=== PATIENT | female | born 1945 | race Two or more races ===

== ENCOUNTER 2019-09-24 14:57 | Inpatient (IN) | payer OTHER ==
[~2019-09-24] VITALS: Ht 167.6 cm; Wt 80.7 kg
[2019-09-24] MEDS ORDERED: ADVIL (16:17)
[2019-09-24] MEDS ORDERED: SYNTHROID112 MCG (16:18)
[2019-09-24] MEDS ORDERED: LOSARTAN (16:20)
[2019-09-24] MEDS ORDERED: RESTORIL30 M1 (16:21)
[2019-09-26] MEDS ORDERED: LOSARTAN POTAS100 MG PO (16:46)
[2019-09-26] MEDS ORDERED: ADVIL200 MG (16:47)
[2019-09-26] MEDS ORDERED: NORVASC2.5 MG PO (16:47)
[2019-09-29] MEDS ORDERED: PERCOCET 5-3251 EACH PO (08:00)
[2019-09-29] MEDS ORDERED: ELIQUIS2.5 MG PO (08:00)
== END 2019-09-29 13:11 | DRG 482 ==
LOC: ER 14:57 → SURG 19:56 → SURH 09-25 19:21
PROVIDERS: Orthopaedic Surgery; ADMIT Internal Medicine; ATTEND Internal Medicine
PROC: 4A033R1 Measurement of Arterial Saturation, Peripheral, Percutaneous Approach (ICD-10-PCS; 2019-09-24)
PROC: 0QS636Z Reposition Right Upper Femur with Intramedullary Internal Fixation Device, Percutaneous Approach (ICD-10-PCS; principal; 2019-09-25 09:00)
DX: S72.141A Displaced intertrochanteric fracture of right femur, initial encounter for closed fracture (principal); J44.9 Chronic obstructive pulmonary disease, unspecified; E03.9 Hypothyroidism, unspecified; W18.30XA Fall on same level, unspecified, initial encounter; I10 Essential (primary) hypertension; E66.9 Obesity, unspecified; M81.0 Age-related osteoporosis without current pathological fracture